=== PATIENT | male | born 1995 | race Caucasian/White ===

== ENCOUNTER → 2017-09-10 | Outpatient (REF) | payer OTHER ==
[2017-09-10 15:57] LABS: INFLUENZA A AMPLIFICATION NEGATIVE (NEGATIVE); INFLUENZA B AMPLIFICATION NEGATIVE (NEGATIVE)
== END ==
LOC: M LAB REF 15:13
DX: J11.1 Influenza due to unidentified influenza virus with other respiratory manifestations (principal)

== ENCOUNTER 2018-04-05 21:18 | Emergency (ER) | payer OTHER ==
[2018-04-05] MEDS: DERMABOND TOPICAL SKIN ADHESIVE TOP (21:35)
== END 2018-04-05 21:55 | disposition home or self-care (01) ==
LOC: M ED 21:18
DX: S91.312A Laceration without foreign body, left foot, initial encounter (principal); W22.8XXA Striking against or struck by other objects, initial encounter; Y92.013 Bedroom of single-family (private) house as the place of occurrence of the external cause
CPT/HCPCS: 99282

== ENCOUNTER → 2018-06-09 | Outpatient (CLI) | payer OTHER | LOC: M LRY 13:10 | DX: R05 Cough (principal) | CPT/HCPCS: G0463 ==